=== PATIENT | male | born 1940 | race Caucasian/White ===

== ENCOUNTER 2019-09-19 10:13 | Emergency (ER) | payer MEDICARE, OTHER ==
[~2019-09-19] VITALS: Ht 177.8 cm; Wt 88.5 kg
[~2019-09-19 10:13] MED LIST: ASPI-231 PO; CLON0.5T3 PO; LEVO75TA6 PO; METO25TA5 PO; PAR20T PO; RAMI10CA38 PO; SIMV-8 PO
[2019-09-19 10:22] VITALS: BP 134/79
[2019-09-19] MEDS ORDERED: ACETAMINOPHEN 500 MG TAB PO ONE (11:00)
== END 2019-09-19 11:28 | disposition home or self-care (01) ==
LOC: ER 10:13
DX: S22.31XA Fracture of one rib, right side, initial encounter for closed fracture (principal); I10 Essential (primary) hypertension; I25.2 Old myocardial infarction; I25.10 Atherosclerotic heart disease of native coronary artery without angina pectoris; E78.5 Hyperlipidemia, unspecified; Z88.5 Allergy status to narcotic agent; Z88.1 Allergy status to other antibiotic agents; W11.XXXA Fall on and from ladder, initial encounter; Y93.89 Activity, other specified; Y92.89 Other specified places as the place of occurrence of the external cause; Y99.8 Other external cause status
CPT/HCPCS: 71101